=== PATIENT | male | born 1960 | race Caucasian/White ===

== ENCOUNTER → 2019-09-20 11:08 | Outpatient (CLI) | payer BC, SELFPAY ==
--- NOTE | 2019-09-20 11:28 | XR_ITS ---
PROCEDURE: XR LUMBAR SPINE MIN 4V CLINICAL INDICATION: LUMBAR PAIN COMPARISON: No exams were available for comparison FINDINGS: There is normal alignment. Degenerative disc disease is present at L2-L3 L3-L4 L4-5 and L5-S1 most severe at L2-L3. No fracture or dislocation. No lytic or blastic change. IMPRESSION: Degenerative disc disease Dictated by: Isaak Reyes MD 09/20/2019 12:56 Electronically signed by Isaak Reyes MD in [place] 09/20/2019 12:56
--- NOTE | 2019-09-20 11:28 | XR_ITS ---
PROCEDURE: XR HIP RT 2-3V W/PELVIS CLINICAL INDICATION: LUMBAR PAIN COMPARISON: No exams were available for comparison FINDINGS: There are mild to moderate osteoarthritic changes of the right hip with decrease in the joint space, osteophyte formation along the femoral head, and subarticular cystic change of the acetabular roof. No fracture or dislocation. No lytic or blastic change. IMPRESSION: [id number] osteoarthritic change right hip Dictated by: Isaak Reyes MD 09/20/2019 12:57 Electronically signed by Isaak Reyes MD in [place] 09/20/2019 12:58
--- NOTE | 2019-09-20 11:28 | XR_ITS ---
PROCEDURE: XR HIP LT 2-3V W/PELVIS CLINICAL INDICATION: LUMBAR PAIN Low back pain bilateral hip pain COMPARISON: No exams were available for comparison FINDINGS: No fracture or dislocation is evident. No significant degenerative change. No lytic or blastic change. Unremarkable soft tissues. IMPRESSION: Negative left hip Dictated by: Isaak Reyes MD 09/20/2019 12:58 Electronically signed by Isaak Reyes MD in [place] 09/20/2019 12:58
== END ==
PROVIDERS: PCP Family Medicine; Visit Provider Nurse Practitioner
DX: M54.5 Low back pain (principal)
CPT/HCPCS: 72110; 73502

== ENCOUNTER → 2023-02-20 10:13 | Outpatient (CLI) | payer OTHER, SELFPAY ==
--- NOTE | 2023-02-20 | XR_ITS ---
PROCEDURE INFORMATION: Exam: XR Lumbosacral Spine Exam date and time: 02/20/2023 10:36 AM Age: 62 years old Clinical indication: Low back pain TECHNIQUE: Imaging protocol: Radiologic exam of the lumbosacral spine. Views: 2 or 3 views. COMPARISON: CR XR LUMBAR SPINE MIN 4V 09/20/2019 11:34 AM FINDINGS: Bones/joints: Normal. No acute fracture. Normal alignment. Soft tissues: Unremarkable. IMPRESSION: No acute findings.
--- NOTE | 2023-02-20 | XR_ITS ---
PROCEDURE INFORMATION: Exam: XR Right Shoulder Exam date and time: 02/20/2023 10:24 AM Age: 62 years old Clinical indication: Pain; Shoulder; Right TECHNIQUE: Imaging protocol: Radiologic exam of the right shoulder. Views: 2 or more views. COMPARISON: No relevant prior studies available. FINDINGS: Bones/joints: Normal. Soft tissues: Normal. IMPRESSION: No acute findings.
--- NOTE | 2023-02-20 | XR_ITS ---
PROCEDURE INFORMATION: Exam: XR Right Hip Exam date and time: 02/20/2023 10:31 AM Age: 62 years old Clinical indication: Hip pain; Right hip; Additional info: Right hip pain TECHNIQUE: Imaging protocol: Radiologic exam of the right hip. Views: 2 or 3 views hip with pelvis when performed. COMPARISON: CR XR HIP RT 2-3V W/PELVIS 09/20/2019 11:34 AM FINDINGS: Bones/joints: Stable osteoarthritic changes right hip with moderate joint space narrowing. No acute fracture or dislocation. Soft tissues: Unremarkable. IMPRESSION: Stable osteoarthritic changes right hip with moderate joint space narrowing.
== END ==
PROVIDERS: PCP Nurse Practitioner Family; Visit Provider Nurse Practitioner Family
DX: M25.511 Pain in right shoulder (principal); M25.551 Pain in right hip; R26.9 Unspecified abnormalities of gait and mobility
CPT/HCPCS: 72100; 73030; 73502

== ENCOUNTER → 2023-03-10 09:00 | Outpatient (CLI) | payer OTHER, SELFPAY ==
[2023-03-10 10:09] LABS: Creatine Kinase 190 U/L (55-170)
[2023-03-10 10:46] LABS: Erythrocyte Sedimentation Rate 17 mm/hr (0-20)
[2023-03-10 11:16] LABS: Vitamin B12 505 pg/mL (239-931)
[2023-03-10 11:24] LABS: Folate > 20.00 ng/mL
[2023-03-11 12:14] LABS: Aldolase 4.1 U/L (3.3-10.3)
[2023-03-11 16:35] LABS: Immunoglobulin A, Qn 121 mg/dL (61-437); Immunoglobulin G, Qn 782 mg/dL (603-1613); Immunoglobulin M, Qn 64 mg/dL (20-172)
[2023-03-15 03:13] LABS: Antinuclear Antibodies (ANA) Negative
== END ==
PROVIDERS: PCP Nurse Practitioner Family; Visit Provider Specialist
DX: I73.9 Peripheral vascular disease, unspecified (principal); R53.1 Weakness; G62.9 Polyneuropathy, unspecified; R26.9 Unspecified abnormalities of gait and mobility; R63.4 Abnormal weight loss; R29.6 Repeated falls; Z72.0 Tobacco use
CPT/HCPCS: 36415; 82085; 82550; 82607; 82746; 82784; 85651; 86038; 86225; 86235; 86334

== ENCOUNTER → 2023-03-16 10:19 | Outpatient (CLI) | payer OTHER, SELFPAY ==
--- NOTE | 2023-03-16 10:19 | MR_ITS ---
FINAL REPORT CLINICAL HISTORY: Frequent falls with head concussion, alcohol abuse unsteady ringing in ears fall x 1 year ago hitting right posterior aspect of head 14ml prohance given FINDINGS: Multiplanar MR imaging of the brain was performed without and with contrast. There is no evidence of intracranial hemorrhage or mass. No abnormal extra-axial fluid collection is seen. The ventricular size is within normal limits. There is no evidence of shift of the midline structures. The posterior fossa and brainstem have an unremarkable appearance. No area of abnormal restricted diffusion is identified. No abnormal contrast enhancement is seen. Normal major vessel vascular flow voids are noted. IMPRESSION: No acute intracranial abnormality identified. Reviewed, Interpreted and Dictated by Rob Sullivan III, MD Transcribed by Hugh Arora Authenticated and . [facility]
[2023-03-16 11:19] LABS: Blood Urea Nitrogen 17 mg/dl (9-20); Estimated Glomerular Filt Rate 114 ml/min (>60); GFR (African American) 138 ML/MIN (>60)
== END ==
PROVIDERS: PCP Nurse Practitioner Family; Visit Provider Specialist
DX: S06.0XAA Concussion with loss of consciousness status unknown, initial encounter (principal); F10.10 Alcohol abuse, uncomplicated; R29.6 Repeated falls
CPT/HCPCS: 36415; 70553; 82565; 84520; A9576